=== PATIENT | male | born 1960 | race Caucasian/White ===

== ENCOUNTER 2017-02-25 03:00 | Inpatient (IN) | payer BC ==
--- NOTE | ~2017-02-25 | A ---
[facility] DATE: 02/27/17 Patient: GREG IBRAHIM Physician: AFF Address: [address] Room/Bed: [address], Zip: [place] [address] Admit Date: 02/25/17 Date of : 62 Height: 5 7 Weight: [phone] NUTRITIONAL ASSESSMENT: REASON: UNINTENTIONAL WEIGHT LOSS PATIENT ADMITTED FOR DEPRESSION AND BIZARRE BEHAVIORS PMH: PARANOIA, DEPRESSION, SCHIZOPHRENIA Anthropometrics: HT: 65", WT: 127#, BMI: 21.1 Labs: NO LABS AVAILABLE Meds: CELEXA, RISPERDAL Assessment: PATIENT IS A 56 Y/O MALE ADMITTED FOR DEPRESSION AND BIZARRE BEHAVIORS. PATIENT IS CURRENTLY EMPLOYED, LIVES WITH HIS , SMOKES 1/2 PPD, AND DENIES ANY SUBSTANCE ABUSE. PATIENT'S TOOK OUT A MIW D/T PATIENT'S BIZARRE BEHAVIORS. PATIENT DOES NOT THINK HE NEEDS TO BE HERE, HOWEVER HE HAS BEEN NON-COMPLIANT WITH HIS MEDICATIONS PRIOR TO ADMIT BELIEVING THAT HE DOES NOT NEED THEM; THEREFORE PATIENT HAS BEEN DECOMPENSATING. PER NEEDS ASSESSMENT PATIENT STATED A POOR APPETITE WITH NO RECENT WEIGHT LOSS, AND HE HAS INSOMNIA ONLY SLEEPING AN AVERAGE OF 3 HOURS/NIGHT. [facility] 133# IN 12/2005. CURRENT PSYCH MEDS MAY CAUSE AN INCREASE IN WEIGHT AND APPETITE. THERE ARE NO SKIN OR GI ISSUES NOTED ATT. PATIENT IS ON A REGULAR DIET. Dx: NO NUTRITION DX Intervention: REGULAR DIET, MEDS PER MD, PSYCH Monitoring, Evaluation and Goals: 1. ADEQUATE PO INTAKES >50% OF MEALS 2. PREVENT, CORRECT MICRO/MACRO NUTRIENT DEFICIENCIES MONITOR: WEIGHTS, LABS, PO/FLUID INTAKES Recommendations: 1. CONTINUE REGULAR DIET TOLERATED 2. ENCOURAGE ADEQUATE PO AND FLUID INTAKES 3. IF PO INTAKES ARE BELOW 50% OF MEALS PLEASE ORDER ENSURE BID TO PROMOTE ADEQUATE KCAL AND PROTEIN INTAKES RD TO F/U PER PROTOCOL AND PRN R/T PATIENT NOT AT NUTRITIONAL RISK ATT [facility] DATE: 02/27/17 Patient: GREG IBRAHIM Physician: HENRRYF Address: [address] Room/Bed: [address], Zip: [place] [address] Admit Date: 02/25/17 Date of : [birth year] Height: 5 7 Weight: [phone] Respectfully, DIANE TAO RD, LD [facility] cc: client file
--- NOTE | ~2017-02-25 | PN ---
Unit #: [id number] #: [id number] Patient: GREG IBRAHIM [id number] [facility] [address] [place] [address] [id number] MR#: [id number] NAME: GREG IBRAHIM. ROOM: P252 Age: 56 Sex: M Admission Date: 02/25/2017 : 1960 Attending Physician: Jesse Torres M.D. Admitting Physician: Jesse Torres M.D. Primary Care Physician: Primary Care Physician Grazyna ALEXANDER PROGRESS NOTES DATE February 28, 2017 DISCUSSION Mr. Ibrahim is a 56-year-old white male, who was seen today and chart was reviewed and the case was discussed with the staff. He is doing fairly well and is cooperative with the treatment recommendations and he has been seclusive to himself, he has not shown any agitation or aggression and he has been taking the medications and tolerating them fairly well with no reported side effects. MENTAL STATUS EXAMINATION Middle-aged white male, who was casually dressed with fair personal hygiene and appears to be in no acute distress or discomfort. He was awake and alert on interaction with intact orientation. His mood is anxious with a congruent affect. He denies any suicidal or homicidal ideations. His insight and judgment remain significantly impaired. TREATMENT PLAN 1. We will continue him on his current medications and treatment protocol, and will monitor his response, and make further adjustments as needed. 2. We will continue to followup. Dictated by... Connie Turcios/rohit TD: 03/01/2017 11:51 JOB #: [id number] Unit #: [id number] #: [id number] Patient: GREG IBRAHIMJAREK PROGRESS NOTES Page 1 of 1 X Jesse Torres MD PROGRESS NOTE
--- NOTE | ~2017-02-25 | PN ---
Unit #: [id number] #: [id number] Patient: GREG IBRAHIM [id number] [facility] [address] [place] [address] [id number] I MR#: [id number] NAME: GREG IBRAHIM. ROOM: P252 Age: 56 Sex: M Admission Date: 02/25/2017 : 1960 Attending Physician: Jesse Torres M.D. Admitting Physician: Jesse Torres M.D. Primary Care Physician: Primary Care Physician Grzayna ALEXANDER PROGRESS NOTES DATE February 26, 2017 DISCUSSION Mr. Ibrahim is a 56-year-old white male, who was seen today and chart was reviewed and the case was discussed with the staff. He has been anxious, withdrawn, but has not shown any agitation or irritability and has been cooperative with the treatment recommendations and he has been taking the medications and tolerating them fairly well. MENTAL STATUS EXAMINATION Middle-aged white male, who was casually dressed with fair personal hygiene and appears to be in no acute distress or discomfort. He was awake and alert with impaired attention and concentration. His mood is anxious with a congruent affect. His speech is slow and tangential. His thought processes are disorganized with some looseness of associations and paranoid ideations. His insight and judgment remain slightly impaired. TREATMENT PLAN 1. We will continue him on his current medications and treatment protocol, and will monitor his response to the medications, and make further adjustments as needed. 2. We will continue to followup. Dictated by... Connie Turcios/rohit TD: 02/27/2017 13:15 JOB #: [id number] Unit #: [id number] #: [id number] Patient: GREG IBRAHIMJAREK PROGRESS NOTES Page 1 of 1 X Jesse Torres MD PROGRESS NOTE
--- NOTE | ~2017-02-25 | PA ---
Unit #: [id number] #: [id number] Patient: GREG IBRAHIM [id number] [facility] [address] [place] [address] [id number] I MR#: [id number] NAME: GREG IBRAHIM ROOM: P252 Age: 56 Sex: M Admission Date: 02/25/2017 : 1960 Date of Assessment: Attending Physician: Jesse Torres M.D. Admitting Physician: Jesse Torres M.D. Primary Care Physician: Primary Care Physician No PSYCHIATRIC ASSESSMENT DATE OF SERVICE 02/25/2017. IDENTIFYING DATA Mr. Ibrahim is a 56-year-old white male, who is a resident of [place], [place], and was brought to the hospital on a mental inquest warrant taken out by his . CHIEF COMPLAINT "I was just sitting outside my porch enjoying the sun." HISTORY OF PRESENT ILLNESS Mr. Ibrahim is a 56-year-old white male with mood disorder, who was brought in on a mental inquest warrant taken by his , who reports that the patient has been off his medication and has been diagnosed with acute paranoia and depression and that he has been sleeping in his truck and walks miles to [facility] in the middle of the night, and MIW stated that the patient has been a compulsive liar, and states that the patient does not think that he needs medication, but the patient's condition is worsening. states that the patient is delusional and belligerent and [facility] to [facility] and stated that the patient has a history of hearing voices, which has [facility]. He works at [employer] and has been having conflict with his and the patient sleeps outside in his truck and that he is unhappy with his marriage. On evaluation by me, the patient was seen to be awake, alert, oriented and was able to sit down and have a meaningful conversation with me and stated that this is the first he heard about him having to go to the court for a mental inquest warrant and that he does realize that his took out some mental inquest evaluation order on him. He reports that he had been working all day and he came home and was sitting outside in his porch enjoying the sun when he was picked up by the police and that he has not been happy with his marriage and that he is not happy that his brings something up from 25 years ago and that he has asked his for divorce and that he is in love with this girl across the street and that is all he feels and believes is wrong with him and that he wants to get out of that marriage; however, he apparently has a history of mood disorder and psychosis, and review of the medical records indicate that he is supposed to be on Celexa and Risperdal, but has been noncompliant with the medications and believes that there is nothing wrong with him and that he does not need to be on any medications. He admits to a history of hearing voices and seeing people and has been told by neighbors to stay away from property or she will file a restraining order. The patient's stated Unit #: [id number] #: [id number] Patient: GREG IBRAHIM that the patient is obsessed with women who show him any attention and the patient on the other hand believes that his is a control freak and believes that he should not be there with his ; however, he was seen to be quite compromised and was having some paranoia and delusional behavior and as such, a mental inquest warrant was upheld and he was transferred to us. SUBSTANCE ABUSE HISTORY The patient denies any history of alcohol or drug abuse. PAST PSYCHIATRIC HISTORY The patient has had a history of inpatient psychiatric hospitalization in the past with treatment of mood disorder and psychosis and was on Celexa and Risperdal, but has been noncompliant with the medications. PAST MEDICAL HISTORY No acute or chronic medical illnesses. ALLERGIES No known medication allergies. PERSONAL AND SOCIAL HISTORY A 56-year-old white male, who reports that he is and employed at [employer] and lives at home with his and has fairly decent social support system. MENTAL STATUS EXAMINATION Middle-aged male, who was casually dressed with fair personal hygiene and appears to be in no acute distress or discomfort. He was awake and alert on interaction with impaired attention and concentration. His mood was anxious with a congruent affect. His speech was slow and restricted in content. His thought processes were disorganized with some looseness of associations, paranoid ideations, and delusional behavior. His insight and judgment remain significantly impaired. DIAGNOSTIC IMPRESSION Psychiatric: Schizoaffective disorder, bipolar type, most recent episode manic with psychosis. Medical: None. Stressors: Moderate psychosocial stressors. TREATMENT PLAN 1. The patient has presented with a history of mood disorder and psychosis and has been decompensating and will need inpatient hospitalization for safety and stabilization. We will start him back on his home medications and we will adjust the medications and monitor response. 2. Supportive therapy was provided to the patient. 3. Safe, structured, and nourishing environment will be provided. ESTIMATED LENGTH OF STAY 5 to 7 days. ABILITY TO HELP SELF Limited. WILLINGNESS TO HELP SELF The patient appears to be willing to help self. Unit #: [id number] #: [id number] Patient: GREG IBRAHIM STRENGTHS 1. Communicative. 2. Cooperative. PROBLEMS 1. Chronic dysphoric symptoms. 2. Poor social support system. DISCHARGE CRITERIA This will be contingent upon the patient's ability to show resolution of his depression and psychosis and his ability to stay safe to himself, particularly after discharge from the hospital. Dictated by... Jesse Torres M.D. GARY/dileep TD: 02/26/2017 15:48 JOB #: [id number] PSYCHIATRIC ASSESSMENT Page 1 of 1 X Jesse Torres MD X PSYCHIATRIC ASSESSMENT
--- NOTE | ~2017-02-25 | PN ---
Unit #: [id number] #: [id number] Patient: GREG IBRAHIM [id number] [facility] [address] [place] [address] [id number] MR#: [id number] NAME: GREG IBRAHIM ROOM: P252 Age: 56 Sex: M Admission Date: 02/25/2017 : 1960 Attending Physician: Jesse Torres M.D. Admitting Physician: Jesse Torres M.D. Primary Care Physician: Primary Care Physician Grazyna CARUSO NOTES DATE OF SERVICE: 02/27/2017 SUBJECTIVE Mr. Ibrahim is a 56-year-old white male, who was seen today and chart was reviewed and the case was discussed with the staff. He has been anxious, withdrawn, rather seclusive to himself. Meanwhile, he has been cooperative with treatment recommendations and has been taking medications and tolerating them fairly well with no reported side effects. MENTAL STATUS EXAMINATION Middle-aged white male, who was casually dressed with fair personal hygiene, appears to be in no acute distress or discomfort. He was awake and alert with intact orientation. His mood was anxious with a congruent affect. He denies any suicidal or homicidal ideations. His insight and judgment remain slightly impaired. TREATMENT PLAN 1. We will continue him on his current treatment protocol. We will monitor his response to the medications and make further adjustments as needed. 2. We will continue to follow up. Dictated by... Connie Turcios/savil TD: 02/27/2017 12:36 JOB #: [id number] CATHERINE CARUSO NOTES Page 1 of 1 X Jesse Torres MD X PROGRESS NOTE
--- NOTE | ~2017-02-25 | DS ---
Unit #: [id number] #: [id number] Patient: [facility]IM [id number] [facility] [place] [address] [id number] I MR#: [id number] NAME: GREG IBRAHIM ROOM: P252 Age: 56 Sex: M Admission Date: 02/25/2017 : 1960 Discharge Date: 03/03/2017 Attending Physician: Jesse Torres M.D. Primary Care Physician: Primary Care Physician No DISCHARGE SUMMARY IDENTIFYING DATA Mr. Salgado is a 56-year-old white male, who is a resident of [place], [place], and was brought to the hospital on a mental inquest warrant taken out by his . DISCHARGE DIAGNOSES Psychiatric: Schizoaffective disorder, bipolar type, most recent episode manic with psychosis. Medical: None. Stressors: Mild psychosocial stressors. HISTORY OF PRESENT ILLNESS Please see initial psychiatric evaluation for details. PAST PSYCHIATRIC HISTORY Please see initial psychiatric evaluation for details. PAST MEDICAL HISTORY Please see initial psychiatric evaluation for details. HOSPITAL COURSE The patient was admitted to the adult psychiatric unit at [facility] justin [place] and was oriented to the hospital environment. Routine p.r.n. medications were initiated, and he was started on his medication and MIW was maintained and he was closely monitored. He was taking the medications regularly and was tolerating them fairly well and was able to sign an agreed order through the court and was denying any thoughts of wanting to hurt himself or anyone else, and as such, it was decided that he will be discharged home. DISCHARGE MEDICATIONS Risperdal 4 mg at bedtime for psychosis and Celexa 20 mg a day for depression. DISCHARGE CONDITION Stable. PROGNOSIS Fair. Dictated by... Jesse Torres M.D. Unit #: [id number] #: [id number] Patient: GREG IBRAHIM IAA/modl TD: 03/05/2017 18:08 JOB #: [id number] DISCHARGE SUMMARY Page 1 of 1 X Jesse Torres MD X DISCHARGE SUMMARY
--- NOTE | ~2017-02-25 | PN ---
Unit #: [id number] #: [id number] Patient: GREG IBRAHIM [id number] [facility] [address] [place] [address] [id number] MR#: [id number] NAME: GREG IBRAHIM. ROOM: P252 Age: 56 Sex: M Admission Date: 02/25/2017 : 1960 Attending Physician: Jesse Torres M.D. Admitting Physician: Jesse Torres M.D. Primary Care Physician: Primary Care Physician Grazyna CARUSO NOTES DATE 03/01/2017 DISCUSSION Mr. Ibrahim is a 56-year-old white male who was seen today and chart was reviewed and case was discussed with the staff. He has been anxious, withdrawn and rather seclusive to himself. Meanwhile, he has been cooperative with treatment recommendations. He has been taking the medication and tolerating them fairly well with no reported side effects. MENTAL STATUS EXAM Middle-aged white male who was casually dressed with fair personal hygiene, appears to be in no acute distress or discomfort. He was awake and alert on interaction with intact orientation. His mood was anxious with congruent affect. He denies any suicidal or homicidal ideation. His insight and judgement remains slightly impaired. TREATMENT PLAN 1. We will continue him on his current treatment protocol. The patient is also going to the court today and we will anticipate the patient signing an agreed order. 2. We will continue to follow up. Dictated by... Connie Turcios/roxane TD: 03/01/2017 20:50 JOB #: [id number] Unit #: [id number] #: [id number] Patient: GREG IBRAHIM CATHERINE PROGRESS NOTES Page 1 of 1 X Jesse Torres MD PROGRESS NOTE
--- NOTE | ~2017-02-25 | PN ---
Unit #: [id number] #: [id number] Patient: FREDI IBRAHIM [id number] [facility] [address] [place] [address] [id number] MR#: [id number] NAME: FREDI IBRAHIM. ROOM: P252 Age: 56 Sex: M Admission Date: 02/25/2017 : 1960 Attending Physician: Jesse Torres M.D. Admitting Physician: Jesse Torres M.D. Primary Care Physician: Primary Care Physician Grazyna CARUSO NOTES DATE 03/02/2017 DISCUSSION Mr. Fredi Ibrahim is a 56-year-old, white male who was seen today and chart was reviewed and case was discussed with the staff. He has been doing fairly well and did go to the MIW court yesterday and has been able to sign a repeat order. He is also with a plan to discharge tomorrow. Meanwhile, he has been taking medications and tolerating them fairly well with no reported side effects. MENTAL STATUS EXAM Middle-aged white male who was casually dressed with fair personal hygiene, appears to be in no acute distress or discomfort. He was awake and alert with intact orientation. His mood was anxious with congruent affect. He denies any suicidal or homicidal ideation. His insight and judgement remains slightly impaired. TREATMENT PLAN 1. We will continue him on his current medications and treatment protocol. We will monitor his response to the medication and make further adjustments as needed. 2. We will continue to follow up. Dictated by... Connie Turcios/roxane TD: 03/02/2017 21:57 JOB #: [id number] Unit #: [id number] #: [id number] Patient: FREDI IBRAHIM CATHERINE PROGRESS NOTES Page 1 of 1 X Jesse Torres MD PROGRESS NOTE
--- NOTE | ~2017-02-25 | HP ---
Unit #: [id number] #: [id number] Patient: GREG IBRAHIM [id number] [place] [address] [id number] I MR#: [id number] NAME: GREG IBRAHIM. ROOM: P252 Age: 56 Sex: M Admission Date: 02/25/2017 : 1960 Attending Physician: Jesse Torres M.D. Admitting Physician: Jesse Torres M.D. Primary Care Physician: Primary Care Physician No HISTORY AND PHYSICAL HISTORY OF PRESENT ILLNESS The patient is a 56-year-old male who states he does not know why he is here. He was brought in by the police due to an MIW taken out by his . PAST MEDICAL HISTORY Significant for depression. PAST SURGICAL HISTORY Significant for cataracts. SOCIAL HISTORY Positive for smoking. ALLERGIES None. FAMILY HISTORY Noncontributory. REVIEW OF SYSTEMS CONSTITUTIONAL: No fever or chills. HEENT: Denies any sore throat, ear pain or runny nose. CARDIOVASCULAR: Denies chest pain, irregular heart rhythm or palpitations. CHEST: Denies shortness of breath or cough. No hemoptysis. GASTROINTESTINAL: Denies nausea, vomiting, diarrhea or chronic constipation. ENDOCRINE: Denies history of increased thirst or urination. No recent significant weight loss or gain. GENITOURINARY: Denies dysuria, frequency, or hematuria. SKIN: Denies any rashes. HEMATOLOGIC: Denies history of increased bleeding or bruising. MUSCULOSKELETAL: Denies any hot, swollen joints. No generalized muscle pain. NEUROLOGIC: Denies problems with vision or speech. No frequent, severe headaches. No numbness, tingling or weakness in any extremities. Denies loss of bladder or bowel control. CURRENT MEDICATIONS 1. Protonix 40 mg daily 2. Celexa 40 mg daily 3. Risperdal 4 mg q.h.s. Unit #: [id number] #: [id number] Patient: GREG IBRAHIM PHYSICAL EXAMINATION GENERAL: Alert, oriented in no acute distress. VITAL SIGNS: Blood pressure 130/73, heart rate 69. HEIGHT: 5 feet 5 inches WEIGHT: 127 pounds SKIN: Warm and dry without rash or lesion. A scar to the left Achilles, bruise to the left ankle and scar to the right finger. HEENT: Normocephalic. TMs not viewed. Oral and nasal passages clear. Conjunctivae clear. PERRLA. EOMs intact. NECK: Supple without lymphadenopathy or thyromegaly. HEART: Regular rate and rhythm without murmur. LUNGS: Clear. ABDOMEN: Soft, nontender, without masses or hepatosplenomegaly. : Not done. EXTREMITIES: No evidence of cyanosis, clubbing or edema. Moves all without focal deficit. NEUROLOGICAL: Grossly within normal limits. Cranial Nerves: II: Visual ledezma are intact. III, IV AND : Extraocular movements are intact. Pupils are equal, round and reactive to light. V: Facial sensation is grossly normal. VII: Facial movements and expression are normal. VIII: Auditory acuity grossly intact. IX, X: Uvula is midline. Phonation is normal. XI: Patient shrugs shoulders and turns head normally. XII: Tongue protrudes in the midline. Sensory and Motor Function: Sensory and motor sensation is grossly normal. Motor: moves all extremities well. Coordination: Gait is normal. Deep Tendon Reflexes: Intact. IMPRESSION Psychiatric admission RECOMMENDATIONS Psychiatric, per psychiatrist. MEDICAL: I see no contraindications to participating in facility's activities. MEDICAL PROGNOSIS Good. Dictated by... Amanda DonovanPSravanRJohn HOLT/roxane TD: 02/27/2017 00:06 JOB #: [id number] Unit #: [id number] #: [id number] Patient: GREG IBRAHIM HISTORY AND PHYSICAL Page 1 of 1 X Sarah Kate APR X HISTORY AND PHYSICAL
[2017-02-28 13:50] LABS: URINE APPEARANCE CLEAR; URINE BILIRUBIN NEG (NEG); URINE BLOOD NEG (NEG); URINE COLOR YELLOW; URINE GLUCOSE 100 MG/DL (NEG); URINE KETONE NEG (NEG); URINE LEUKOCYTE ESTERASE NEG (NEG); URINE NITRATE NEG (NEG); URINE PH 6.5 (5-8); URINE PROTEIN NEG (NEG); URINE SPECIFIC GRAVITY 1.014 (1.003-1.035); URINE UROBILINOGEN 0.2 MG/DL (NEG)
== END 2017-03-03 10:45 | disposition home or self-care (01) | DRG 885 ==
LOC: P2L 12:49
PROVIDERS: Psychiatry & Neurology Psychiatry
DX: F25.0 Schizoaffective disorder, bipolar type (principal); F31.2 Bipolar disorder, current episode manic severe with psychotic features
CPT/HCPCS: 81003